=== PATIENT | female | born 1960 | race Caucasian/White ===

== ENCOUNTER 2018-12-06 07:34 | Inpatient (IN) | payer OTHER ==
[~2018-12-06] VITALS: Ht 162.6 cm; Wt 86.2 kg
== END 2018-12-11 12:00 | disposition home or self-care (01) | DRG 391 ==
LOC: ER 07:34 → SEC-K 20:21 → MEDJ 12-07 03:23 → MEDI 12-07 03:23
PROVIDERS: ADMIT Internal Medicine
PROC: BW21ZZZ Computerized Tomography (CT Scan) of Abdomen and Pelvis (ICD-10-PCS; 2018-12-06)
PROC: 8E0ZXY6 Isolation (ICD-10-PCS; principal; 2018-12-08)
DX: K57.32 Diverticulitis of large intestine without perforation or abscess without bleeding (principal); A41.89 Other specified sepsis; N39.0 Urinary tract infection, site not specified; B96.29 Other Escherichia coli [E. coli] as the cause of diseases classified elsewhere; Z16.12 Extended spectrum beta lactamase (ESBL) resistance